=== PATIENT | male | born 1945 | race Caucasian/White ===

== ENCOUNTER 2020-08-18 07:24 | Day surgery (SDC) | payer BC, OTHER, SELFPAY ==
[~2020-08-18] VITALS: Ht 188 cm; Wt 115.7 kg
[~2020-08-18 07:24] MED LIST: CEFAZOLIN 1 GM IVPB PREMIX 50 ML IV ONE; LIP10 PO; PROP1TAB3 PO
[2020-08-18] MEDS ORDERED: CEFAZOLIN SOD 1 GM in D5W 50 ML IV ONE (08:30)
[2020-08-18] MEDS ORDERED: IOHEXOL 300 mgI/mL, 50 mL INFUS..BTL IV ONE (10:04)
[2020-08-18] MEDS ORDERED: LR 1,000 ML IV.SOLN IV ONE (10:04)
[2020-08-18] MEDS ORDERED: ROCURONIUM BROMIDE 10 MG/ML (ZEMURON) IV ONE (10:04)
[2020-08-18] MEDS ORDERED: BUPIVACAINE /EPINEPHRINE/PF 0.25% 30 ML VIAL INJ ONE (10:04)
[2020-08-18] MEDS ORDERED: NS IRRIG SOLN 1000 ML IR ONE (10:04)
[2020-08-18] MEDS ORDERED: ONDANSETRON HCL 4 MG/2 ML VIAL IVP ONE (10:04)
[2020-08-18] MEDS ORDERED: PROPOFOL 200MG/ 20ML VIAL (DIPRIVAN) IV ONE (10:04)
[2020-08-18] MEDS ORDERED: DESFLURANE 15 MIN GAS INH ONE (10:04)
[2020-08-18] MEDS ORDERED: LIDOCAINE 2%, 20 ML MDV INJ ONE (10:04)
[2020-08-18] MEDS ORDERED: DEXAMETHASONE SOD PHOSPHATE 4 MG/ML VIAL IVP ONE (10:04)
[2020-08-18] MEDS ORDERED: fentaNYL CITRATE 250 MCG/5 ML AMP IV ONE (10:04)
[2020-08-18] MEDS ORDERED: HYDROmorphone 1 INJ. 1 MG/ML CARTRIDGE IVP PRN ×2 (10:45→13:45)
[2020-08-18] MEDS ORDERED: MEPERIDINE HCL/PF 25 MG/ML DISP.SYRIN IVP PRN (10:45)
[2020-08-18] MEDS ORDERED: METOCLOPRAMIDE HCL 10 MG/2 ML VIAL IVP PRN (10:45)
[2020-08-18] MEDS ORDERED: LR 1,000 ML IV SCH (10:45)
[2020-08-18] MEDS ORDERED: ACETAMINOPHEN I.V. 1000 MG 100 ML IV ONE ×2 (10:45→11:50)
[2020-08-18] MEDS ORDERED: LABETALOL 100 MG/ 20ML VIAL IVP PRN (10:45)
[2020-08-18] MEDS ORDERED: ONDANSETRON HCL 4 MG/2 ML VIAL IVP PRN (10:45)
[2020-08-18] MEDS ORDERED: hydrALAZINE HCL 20 MG/ML VIAL IVP PRN (10:45)
[2020-08-18] MEDS ORDERED: HYDROmorphone 1 INJ. 1 MG/ML CARTRIDGE ONE ×2 (11:44→12:34)
[2020-08-18] MEDS: HYDROmorphone 1 INJ. 1 MG/ML CARTRIDGE IVP PRN ×2 (11:45→11:48)
[2020-08-18] MEDS ORDERED: HYDROcodone/ACETAMIN 5-325 MG TAB (NORCO/ VICODIN) PO PRN ×2 (11:45→13:45)
[2020-08-18 13:38] VITALS: BP_SYST 116
[2020-08-18] MEDS ORDERED: D5/0.45 NS 1,000 ML IV SCH (13:45)
== END 2020-08-18 18:00 | disposition home or self-care (01) ==
LOC: SDS 07:24
PROVIDERS: ATTEND Colon & Rectal Surgery
DX: K80.12 Calculus of gallbladder with acute and chronic cholecystitis without obstruction (principal); J44.9 Chronic obstructive pulmonary disease, unspecified; G62.9 Polyneuropathy, unspecified; E66.01 Morbid (severe) obesity due to excess calories; E78.5 Hyperlipidemia, unspecified; N40.0 Benign prostatic hyperplasia without lower urinary tract symptoms; I25.10 Atherosclerotic heart disease of native coronary artery without angina pectoris; Z20.828 Contact with and (suspected) exposure to other viral communicable diseases; Z79.899 Other long term (current) drug therapy
CPT/HCPCS: 47563; 74300; 88304; C1727; C1758; J0131; J0690; J1100; J1170; J2001; J2405; J2704; J3010; J3490; J7060; J7120; Q9967; U0003; U0005